=== PATIENT | female | born 1980 | race Caucasian/White ===

== ENCOUNTER 2021-09-24 23:48 | Emergency (ER) | payer OTHER ==
[~2021-09-24] VITALS: Ht 157.5 cm; Wt 74.8 kg
== END 2021-09-25 09:22 | disposition home or self-care (01) ==
LOC: ER 23:48
DX: K80.50 Calculus of bile duct without cholangitis or cholecystitis without obstruction (principal)

== ENCOUNTER 2021-09-27 18:36 | Inpatient (IN) | payer OTHER ==
[~2021-09-27] VITALS: Ht 157.5 cm; Wt 74.8 kg
[2021-09-27] MEDS ORDERED: FAMOTIDINE20 MG PO (18:43)
[2021-09-27] MEDS ORDERED: AMOX-CLAV 875-1 EAC1 PO (18:43)
[2021-09-27] MEDS ORDERED: HYOSCYAMINE0.125 M1 SL (18:44)
[2021-09-30] MEDS ORDERED: PANTOPRAZOLE SO40 MG (10:17)
[2021-09-30] MEDS ORDERED: GEMFIBROZIL600 MG (10:17)
[2021-09-30] MEDS ORDERED: BACLOFEN10 MG (10:17)
== END 2021-10-03 11:17 | disposition home or self-care (01) | DRG 446 ==
LOC: ER 18:36 → SURH 09-28 00:41
PROVIDERS: ADMIT Surgery; ATTEND Surgery
PROC: BW40ZZZ Ultrasonography of Abdomen (ICD-10-PCS; principal; 2021-09-27)
DX: K80.00 Calculus of gallbladder with acute cholecystitis without obstruction (principal); Z20.822 Contact with and (suspected) exposure to COVID-19; E66.8 Other obesity; Z68.30 Body mass index [BMI] 30.0-30.9, adult

== ENCOUNTER 2021-11-26 05:55 | Day surgery (SDC) | payer OTHER ==
[~2021-11-26 05:55] MED LIST: AMOX-CLAV 875-1 EAC1 PO; BACLOFEN10 MG; FAMOTIDINE20 MG PO; GEMFIBROZIL600 MG; HYOSCYAMINE0.125 M1 SL; PANTOPRAZOLE SO40 MG
== END 2021-11-26 11:27 | disposition home or self-care (01) ==
LOC: CIR.AMB 05:55
PROVIDERS: ATTEND Surgery
DX: K80.10 Calculus of gallbladder with chronic cholecystitis without obstruction (principal); Z71.6 Tobacco abuse counseling; F17.210 Nicotine dependence, cigarettes, uncomplicated; Z20.822 Contact with and (suspected) exposure to COVID-19